=== PATIENT | male | born 1990 | race Two or more races ===

== ENCOUNTER 2020-05-27 17:26 | Emergency (ER) | payer MEDICAID ==
[~2020-05-27] VITALS: Ht 182.9 cm; Wt 74.4 kg
[2020-05-27 17:56] VITALS: BP 132/81
--- NOTE | 2020-05-27 18:18 | NUR ---
Patient assessed by Dr Bell, no nursing interventions performed
--- NOTE | 2020-05-27 18:20 | NUR ---
discharged without signing paperwork
[2020-05-27 18:39] VITALS: BP 132/81
== END 2020-05-27 18:20 | disposition home or self-care (01) ==
LOC: MED 17:26
DX: F11.10 Opioid abuse, uncomplicated (principal); F15.10 Other stimulant abuse, uncomplicated; F13.20 Sedative, hypnotic or anxiolytic dependence, uncomplicated
CPT/HCPCS: 99281